=== PATIENT | male | born 1995 ===

== ENCOUNTER 2023-05-18 12:32 | Outpatient (CLI) | payer OTHER, SELFPAY ==
--- NOTE | 2023-05-18 13:00 | MR_ITS ---
[address] [address] Phone:?[phone] Fax:?[phone] Referring Physician Information: Francisco J Gillette M.D. [id number] [facility] [address] Phone:?[phone] Fax:?[phone] Patient:Alfred Boyd D.O.B:?1995 Sex:?Male Phone:?[phone] [facility] MRN:?[id number] Exam Date:?05/18/2023 EXAM: MRI of the LEFT KNEE, without contrast CLINICAL HISTORY: Ongoing left knee pain. Worker's Compensation. Evaluate for medial meniscal tear. COMPARISONS: Plain radiographs 03/31/2023. TECHNICAL: MR sequences of the left knee: sagittals: PD, PDFS coronals: PD, STIR axials: PD, T2 FS CONTRAST: None SEDATION: None FINDINGS: Bones: No fracture, bone marrow contusion, or other suspicious bone marrow signal abnormality. Patellofemoral joint: Cartilage: Intact. Retinacula: The medial and lateral retinacula are intact. Fat pads: The infrapatellar, quadriceps, and prefemoral fat pads are unremarkable. Knee joint: Effusion: Physiologic amount of joint fluid. Popliteal cyst: None. Intra-articular bodies: None. Posteromedial corner: The semimembranosus and pes anserine tendons are intact. Medial compartment: Medial meniscus: Intact. Cartilage: Intact. Lateral compartment: Lateral meniscus: Intact. Cartilage: Intact. Ligaments: Anterior cruciate ligament: Intact. Posterior cruciate ligament: Intact. Medial collateral ligament: Intact. Posterior oblique ligament: Intact. Fibular collateral ligament: Intact. Posterolateral corner: The distal biceps femoris tendon, iliotibial band, popliteus tendon, popliteus muscle, popliteofibular ligament, and arcuate ligament are intact. Extensor mechanism: Patellar tendon: Intact. Quadriceps tendon: Intact. IMPRESSION: Unremarkable MRI of the left knee without osseous, ligamentous, tendinous, meniscal, or chondral pathology. RCB Electronically signed on 05/18/2023 3:41:00 PM by Mikey Ohara M.D.
== END 2023-05-18 12:33 | disposition home or self-care (01) ==
PROVIDERS: Visit Provider Orthopaedic Surgery
DX: M25.562 Pain in left knee (principal); S89.92XA Unspecified injury of left lower leg, initial encounter
CPT/HCPCS: 73721